=== PATIENT | male | born 1985 | race African-American/Black ===

== ENCOUNTER 2018-03-04 12:50 | Emergency (ER) | payer SELFPAY ==
[~2018-03-04] VITALS: Ht 175.3 cm; Wt 95.5 kg
[2018-03-04 12:53] VITALS: TEMP 96.9
[2018-03-04 13:04] LABS: BASO # 0.1 (0.0-0.2); BASO % 0.9 % (0.0-2.0); EOS # 0.1 (0.0-0.7); GRAN # 6.4 (1.4-6.5); GRAN % 69.5 % (42.2-75.2); HEMATOCRIT 42.9 % (42.0-52.0); HEMOGLOBIN 15.2 g/dl (13.5-18.0); LYMPH # 1.8 (1.2-3.4); LYMPH % 19.1 % (20.0-51.0); MEAN CELL VOLUME 81 fl (80.0-100.0); MEAN CORPUSCULAR HEMOGLOBIN 29 pg (27.0-31.0); MEAN CORPUSCULAR HGB CONC 35 g/dl (33.0-37.0); MEAN PLATELET VOLUME 9.9 fl (7.4-10.4); MONO # 0.9 (0.1-0.6); MONO % 9.2 % (1.7-9.3); PLATELET COUNT 287 K/mm3 (130-400); RED BLOOD COUNT 5.33 M/mm3 (4.20-5.60); REDCELL DISTRIBUTION WIDTH-CV 14.6 % (11.5-14.5)
[2018-03-04 13:17] LABS: ALBUMIN 4.2 gm/dL (3.5-5.0); BILIRUBIN,TOTAL 0.9 mg/dL (0.0-1.0); C-REACTIVE PROTEIN 2.1 mg/dL (0.0-0.9); CALCIUM 9.7 mg/dL (8.4-10.2); CREATININE, serum 0.69 mg/dL (0.66-1.25); POTASSIUM 3.4 mmol/L (3.4-5.0); TOTAL PROTEIN 7.6 gm/dL (6.4-8.2)
[2018-03-04 14:10] LABS: COLLECTION METHOD CLEAN CATCH
[2018-03-04 14:20] LABS: MUCOUS Present /lpf; PH 6 (5-8); SQUAMOUS EPITHELIAL 0-2 /hpf; URINE APPEARANCE Hazy; URINE BACTERIA None Seen /hpf; URINE BILIRUBIN Negative (NEGATIVE); URINE BLOOD Negative (NEGATIVE); URINE COLOR Amber; URINE GLUCOSE Negative (NEGATIVE); URINE KETONE 1+ (NEGATIVE); URINE LEUKOCYTE ESTERASE Trace (NEGATIVE); URINE NITRATE Negative (NEGATIVE); URINE PROTEIN(semi-quant) 1+ (NEGATIVE); URINE RBC 0-2 /hpf; URINE UROBILINOGEN >=4.0 mg/dL (NEGATIVE)
[2018-03-04] MEDS ORDERED: PHENERGAN 25 TA25 MG PO (15:15)
[2018-03-04] MEDS ORDERED: CEFTIN500 MG PO (15:15)
[2018-03-04 16:04] VITALS: BP 134/74; PULSE 62
== END 2018-03-04 16:13 | disposition home or self-care (01) ==
LOC: COL.ER 12:50
PROVIDERS: Emergency Medicine
DX: N39.0 Urinary tract infection, site not specified (principal); R11.2 Nausea with vomiting, unspecified; R19.7 Diarrhea, unspecified; F17.210 Nicotine dependence, cigarettes, uncomplicated; F12.90 Cannabis use, unspecified, uncomplicated
CPT/HCPCS: A4216; J0696; J0780; J1200; J2405; J7030; Q9967

== ENCOUNTER 2018-04-06 11:03 | Emergency (ER) | payer SELFPAY ==
[~2018-04-06] VITALS: Ht 175.3 cm; Wt 79.5 kg
[~2018-04-06 11:03] MED LIST: CEFTIN500 MG PO; PHENERGAN 25 TA25 MG PO
[2018-04-06 11:18] VITALS: TEMP 98
[2018-04-06 12:50] LABS: BASO % 0.3 % (0.0-2.0); GRAN # 7.5 (1.4-6.5); GRAN % 78.1 % (42.2-75.2); HEMOGLOBIN 17.5 g/dl (13.5-18.0); LYMPH # 1.5 (1.2-3.4); LYMPH % 15.8 % (20.0-51.0); MEAN CELL VOLUME 81 fl (80.0-100.0); MEAN CORPUSCULAR HEMOGLOBIN 29 pg (27.0-31.0); MEAN CORPUSCULAR HGB CONC 36 g/dl (33.0-37.0); MEAN PLATELET VOLUME 9.7 fl (7.4-10.4); MONO # 0.5 (0.1-0.6); MONO % 5.6 % (1.7-9.3); PLATELET COUNT 311 K/mm3 (130-400); RED BLOOD COUNT 6.03 M/mm3 (4.20-5.60); REDCELL DISTRIBUTION WIDTH-CV 15.9 % (11.5-14.5)
[2018-04-06 13:11] LABS: BILIRUBIN,TOTAL 1.6 mg/dL (0.0-1.0); CALCIUM 10.5 mg/dL (8.4-10.2); CREATININE, serum 0.73 mg/dL (0.66-1.25); POTASSIUM 3.8 mmol/L (3.4-5.0); TOTAL PROTEIN 9.3 gm/dL (6.4-8.2)
[2018-04-06 13:12] LABS: C-REACTIVE PROTEIN 0.5 mg/dL (0.0-0.9)
[2018-04-06 14:08] LABS: COLLECTION METHOD CLEAN CATCH
[2018-04-06] MEDS ORDERED: ZOFRAN ODT4 MG PO (14:13)
[2018-04-06 14:37] LABS: MUCOUS Present /lpf; PH 6 (5-8); SQUAMOUS EPITHELIAL 0-2 /hpf; URINE APPEARANCE Hazy; URINE BACTERIA None Seen /hpf; URINE BILIRUBIN Positive (NEGATIVE); URINE BLOOD Negative (NEGATIVE); URINE COLOR Amber; URINE GLUCOSE 1+ (NEGATIVE); URINE KETONE 1+ (NEGATIVE); URINE LEUKOCYTE ESTERASE Negative (NEGATIVE); URINE NITRATE Negative (NEGATIVE); URINE PROTEIN(semi-quant) 2+ (NEGATIVE); URINE RBC 0-2 /hpf; URINE UROBILINOGEN >=4.0 mg/dL (NEGATIVE)
[2018-04-06 15:08] VITALS: BP 135/75; PULSE 71
== END 2018-04-06 16:23 | disposition home or self-care (01) ==
LOC: COL.ER 11:03
PROVIDERS: Physician Assistant
DX: R11.2 Nausea with vomiting, unspecified (principal)
CPT/HCPCS: J2060; J2405; J2765; J7030

== ENCOUNTER 2018-06-11 11:43 | Emergency (ER) | payer OTHER ==
[~2018-06-11] VITALS: Ht 175.3 cm; Wt 79.5 kg
[~2018-06-11 11:43] MED LIST changes: +ZOFRAN ODT4 MG PO
[2018-06-11 11:50] VITALS: TEMP 98.5
[2018-06-11 13:18] LABS: BASO % 0.3 % (0.0-2.0); GRAN # 6.3 (1.4-6.5); GRAN % 67.2 % (42.2-75.2); HEMATOCRIT 50.3 % (42.0-52.0); LYMPH # 2.1 (1.2-3.4); LYMPH % 21.8 % (20.0-51.0); MEAN CELL VOLUME 82 fl (80.0-100.0); MEAN CORPUSCULAR HEMOGLOBIN 30 pg (27.0-31.0); MEAN CORPUSCULAR HGB CONC 36 g/dl (33.0-37.0); MEAN PLATELET VOLUME 9.5 fl (7.4-10.4); MONO % 10.3 % (1.7-9.3); PLATELET COUNT 326 K/mm3 (130-400); RED BLOOD COUNT 6.12 M/mm3 (4.20-5.60); REDCELL DISTRIBUTION WIDTH-CV 15.1 % (11.5-14.5)
[2018-06-11 13:19] LABS: HEMOGLOBIN 18.1 g/dl (13.5-18.0)
[2018-06-11 13:28] LABS: ALBUMIN 4.7 gm/dL (3.5-5.0); BILIRUBIN,TOTAL 1.3 mg/dL (0.0-1.0); C-REACTIVE PROTEIN 0.6 mg/dL (0.0-0.9); CALCIUM 10.4 mg/dL (8.4-10.2); CREATININE, serum 0.67 (0.66-1.25); POTASSIUM 3.3 mmol/L (3.4-5.0); TOTAL PROTEIN 8.5 gm/dL (6.4-8.2)
[2018-06-11] MEDS ORDERED: COMPAZINE 110 MG/TAB PO (14:44)
[2018-06-11 15:20] VITALS: BP 112/78; PULSE 79
== END 2018-06-11 15:30 | disposition home or self-care (01) ==
LOC: COL.ER 11:43
PROVIDERS: Physician Assistant
DX: S20.211A Contusion of right front wall of thorax, initial encounter (principal); G43.A0 Cyclical vomiting, in migraine, not intractable; F12.90 Cannabis use, unspecified, uncomplicated; F17.210 Nicotine dependence, cigarettes, uncomplicated; V49.60XA Unspecified car occupant injured in collision with unspecified motor vehicles in traffic accident, initial encounter
CPT/HCPCS: J0780; J2060; J2405; J7030

== ENCOUNTER 2018-06-25 02:34 | Emergency (ER) | payer SELFPAY ==
[~2018-06-25] VITALS: Ht 175.3 cm; Wt 79.5 kg
[~2018-06-25 02:34] MED LIST changes: +COMPAZINE 110 MG/TAB PO
[2018-06-25 02:38] VITALS: BP 114/62; TEMP 97
[2018-06-25] MEDS ORDERED: FLEXERIL 1010 MG/TAB PO (04:47)
[2018-06-25 05:10] VITALS: PULSE 61
== END 2018-06-25 05:10 | disposition home or self-care (01) ==
LOC: COL.ER 02:34
DX: M94.0 Chondrocostal junction syndrome [Tietze] (principal); F17.210 Nicotine dependence, cigarettes, uncomplicated; F12.90 Cannabis use, unspecified, uncomplicated
CPT/HCPCS: J1885